=== PATIENT | male | born 1975 | race Two or more races ===

== ENCOUNTER 2016-09-29 18:52 | Emergency (ER) | payer MEDICAID ==
[2016-09-29] MEDS ORDERED: IBUPROFEN 600 MG TAB PO ONE (19:07)
[2016-09-29] MEDS ORDERED: LIDOCAINE 2% JELLY 5 ML TUBE ONE (19:07)
[2016-09-29 19:15] VITALS: BP 127/83; PULSE 84; RESP 14; TEMP 97.5; O2SAT 93
[2016-09-29] MEDS ORDERED: LIDOCAINE 2% JELLY 5 ML TUBE TP ONE (19:15)
[2016-09-29] MEDS ORDERED: IBUPROFEN 200 MG TAB PO ONE ×2 (19:17)
--- NOTE | 2016-09-29 19:23 | UCPHY ---
H & P Time Seen by Provider: 09/29/16 19:17 Patient Type: Established HPI/ROS: CHIEF COMPLAINT: right thumb laceration HISTORY OF PRESENT ILLNESS: 38-year-old healthy male who is up-to-date. Sustained a laceration to the right thumb by a band saw. He is right-handed but it nipped the tip of his thumb any way. This happened at home. Complains of moderate to severe pain due to laceration. This just happened prior to admission REVIEW OF SYSTEMS: Musculoskeletal: see above Neuorlogical: No numbness or weakness. No loss of sensation. Smoking Status: Current every day smoker Physical Exam: General Appearance: Alert, no distress. Afebrile. Extremities: The neurovascular status remains intact to the right thumb. There is a 2 cm laceration into the tip of the thumb which is just below the edge of the fingernail itself. Does not involve the cuticle or the nail bed. The wound is not gaping. I am unable to split it open. Neurological: NV intact. Skin: Skin is intact. Warm and dry, no rashes. no lymphangitis. . Constitutional: Initial Vital Signs Temperature (C) 36.4 C 09/29/16 19:11 Heart Rate 84 09/29/16 19:11 Respiratory Rate 14 09/29/16 19:11 Blood Pressure 127/83 H 09/29/16 19:11 O2 Sat (%) 93 09/29/16 19:11 O2 Delivery Mode Room Air Allergies/Adverse Reactions: No Known Allergies Allergy (Verified 09/29/16 19:11) Home Medications: Medication Instructions Recorded Hydrocodone/APAP 5/325 [[place] 1 - 2 tab PO Q6H PRN #15 tab 09/29/16 5/325 (*)] Medical Decision Making - Diagnostics Imaging: My Plain Film Review: Plain film of thumb 3 view series. Interpreted by radiologist. Films reviewed me. Procedures: Nursing staff applied topical lidocaine for his comfort. I offered him a digital block but he ultimately declined. Wound was cleansed with irrigation by the nursing staff and dressed. Patient warned regarding retained foreign body due to the sawdust on the blade He will have a Stax splint for later in the week Differential Diagnosis: The differential diagnosis includes but is not limited to: Fracture, laceration, retained FB, Nerve injury - Data Points Medications Given: Discontinued Medications Acetaminophen/Hydrocodone Bitart ([place] 5/325mg Prepack#6) 1 btl TAKEHOME EDNOW ONE Stop: 09/29/16 19:51 Last Admin: 09/29/16 20:24 Dose: 1 btl Ibuprofen (Motrin) 200 mg PO EDNOW ONE Stop: 09/29/16 19:18 Last Admin: 09/29/16 19:20 Dose: 200 mg Ibuprofen (Motrin) 400 mg PO EDNOW ONE Stop: 09/29/16 19:18 Last Admin: 09/29/16 19:20 Dose: 400 mg Lidocaine (Lidocaine 2% Jelly) 1 princess TP EDNOW ONE Stop: 09/29/16 19:16 Last Admin: 09/29/16 19:15 Dose: 1 princess Departure - Departure Disposition: Home, Routine, Self-Care Clinical Impression: Laceration of thumb Qualifiers: Qualifier Code: (S61.011A) Laceration without foreign body of right thumb without damage to nail, initial encounter Condition: Good Instructions: Laceration (ED) Additional Instructions: Keep the wound clean Soak the wound for 10 minutes three times daily for the next 3 days Watch for any signs of infection Stop the [place] soon as possible Referrals: IN STATE,. [Primary Care Provider] - As per Instructions Prescriptions: Hydrocodone/APAP 5/325 [[place] 5/325 (*)] 1 - 2 tab PO Q6H PRN #15 tab PRN Reason: moderate pain - PQRS PQRS Measurement: Not applicable
[2016-09-29] MEDS ORDERED: HYDROCOD/APAP 5/325 PREPACK#6 BTL TAKEHOME ONE (19:50)
--- NOTE | 2016-09-29 20:05 | DX ---
Right Thumb, Three Views, at 7:31 p.m. Clinical History: 41-year-old male who cut the tip of his thumb on a band saw prior to admission. Comparison Study: None. Findings: There is a soft tissue laceration over the distal tip of the right thumb. There is no fra cture, dislocation, or radiopaque foreign body. There is some bandaging material present. The remai nder of the hand is unremarkable. Impression: Soft tissue injury over the distal tip of the thumb, with no acute osseous abnormality.
== END 2016-09-29 20:30 | disposition home or self-care (01) ==
LOC: CED 18:52
PROC: 2W2GX4Z Dressing of Right Thumb using Bandage (ICD-10-PCS; principal; 2016-09-29)
DX: S61.011A Laceration without foreign body of right thumb without damage to nail, initial encounter (principal); W31.2XXA Contact with powered woodworking and forming machines, initial encounter; Y92.019 Unspecified place in single-family (private) house as the place of occurrence of the external cause; F17.200 Nicotine dependence, unspecified, uncomplicated
CPT/HCPCS: 73140-PO; 99214-PO; G0463-PO